=== PATIENT | male | born 1960 | race African-American/Black ===

== ENCOUNTER 2019-03-03 23:31 | Observation (INO) ==
[2019-03-04 00:40] LABS: ALBUMIN 4.8 g/dL (3.5-5.0); BASO# 0.06 X1000 (0.0-0.2); BASO% 1.1 % (0.0-0.8); CREATININE 1.3 mg/dL (0.7-1.2); EOS# 0.22 X1000 (0.0-0.7); HEMATOCRIT 44.2 % (42.0-52.0); HEMOGLOBIN 14.7 g/dL (14.0-18.0); LYMPH# 1.95 X1000 (1.2-3.4); LYMPH% 35.7 % (20.5-51.1); MCH 28.7 PG (27-31); MCHC 33.3 g/dL (33-37); MCV 86.2 FL (81-99); MONO# 0.41 X1000 (0.11-0.59); MONO% 7.5 % (1.7-9.3); MPV 10.3 FL (7.4-10.4); NEUT# 2.82 X1000 (1.4-6.5); NEUT% 51.7 % (42.2-75.2); PLT 203 X1000 (130-400); RBC 5.13 XMIL (4.7-6.1); RDW 12.9 % (11.5-14.5); TOTAL BILIRUBIN 0.4 mg/dL (0.20-1.00); TOTAL PROTEIN 7.2 g/dL (6.3-8.3); WBC 5.46 X1000 (4.8-10.8)
--- NOTE | 2019-03-04 00:41 | PROVIDER DOCUMENTATION ---
This chart was entered by Beth Huffman Scribe, acting as scribe for Kristina Mackey CRNP. HPI-Syncope/Dizziness - General Source: patient, EMS - History of Present Illness-Syncope/Dizzy Prior Episodes: reports: no prior history Onset/Duration: reports: just prior to arrival Timing: reports: still present Position/Activity at time of episode: reports: activity (walking at work) Symptoms prior to episode: reports: other (dizzy) Context: reports: lost consciousness Loss of Consciousness: brief (seconds) Location of injury. (If syncope resulted in an injury.): reports: head Current Symptoms: reports: none/feels normal. denies: sweaty, chest pain, short of breath, nausea, dizzy, headache Recently Seen Here or By Another Healthcare Provider: No <Kristina Mackey - Last Filed: 03/04/19 01:17> <Aramis Pritchett - Last Filed: 03/04/19 04:13> - General Chief Complaint: Syncope Stated Complaint: Syncope/Fall(hit head) Time Seen by Provider: 03/03/19 23:39 - History of Present Illness-Syncope/Dizzy Nature of Presenting Problem: 59 y/o male with history of hypertension and stage II kidney failure as well as previous stent placement is brought to the ED via EMS after syncopal episode while at work [employer]. The patient states while at work he felt dizzy and then was on the concrete. He states head injury but denies tenderness to palpation, mayh st pain, SOB, and all other symptoms. EMS states the patient was hypoglycemic en route and they gave 15 grams Dextrose. (Kristina Mackey) Review of Systems - Adult - REVIEW OF SYSTEMS - ADULT Constitutional: denies: chills, fever, weight loss Eyes: reports: no symptoms reported Ears, Nose, Mouth & Throat: reports: no symptoms reported Cardiovascular: reports: syncope. denies: chest pain, palpitations Respiratory: denies: hemoptysis, pleurisy, shortness of breath Gastrointestinal: denies: diarrhea, nausea, vomiting Genitourinary: reports: no symptoms reported Musculoskeletal: reports: no symptoms reported Integumentary: reports: no symptoms reported Neurological: reports: dizziness/vertigo, syncope. denies: headache/migraines, slurred speech Psychiatric: reports: no symptoms reported Endocrine: reports: no symptoms reported Hematologic/Lymphatic: reports: no symptoms reported Allergic/Immunologic: reports: no symptoms reported All Other Systems: Reviewed and Negative <Kristina MackeyParveen - Last Filed: 03/04/19 01:17> Past History - Adult - PAST MEDICAL HISTORY-ADULT Review of Records: reports: Old Records Reviewed, Nursing Assessment Review, Medications Reviewed - IMMUNIZATION STATUS Childhood Immunizations: See Nurse Assessment Flu Vaccine: See Nurse Assessment - SOCIAL HISTORY Occupation: [email or web address] <Kristina MackeyParveen - Last Filed: 03/04/19 01:17> Physical Exam-General - PHYSICAL EXAM-ADULT Initial Vital Signs Reviewed: Yes - CONSTITUTIONAL General Appearance: alert, no apparent distress - EYES Eyes: PERRL/EOMI - HEAD, EARS, NOSE, MOUTH & THROAT HENMT: normocephalic/atraumatic, moist mucous membranes - NECK Neck: non-tender, full range of motion, supple. negative: C-spine tenderness - RESPIRATORY Respiratory: lungs clear, normal breath sounds, no pleuratic chest pain. negative: rales, rhonchi, wheezing, crepitus - CARDIOVASCULAR Cardiovascular: regular rate, rhythm, no edema, no gallop - GASTROINTESTINAL (ABDOMEN) Abdominal Exam: normal bowel sounds, non tender, soft. negative: distended, guarding, rebound - SKIN Integumentary: normal color, warm/dry - NEUROLOGIC Neurologic: clinical support specialist II-XII nml as tested <Kristina MackeyParveen - Last Filed: 03/04/19 01:17> Progress - PLAN OF CARE/RESULTS Result Diagrams: 03/04/19 00:02 03/04/19 00:02 - EKG 1 Time of EKG reading by physician:: 23:38 EKG Read and Signed by:: Aramis Pritchett EKG Interpretation (*Must complete 3 of following elements*): Abnormal Rate: 71 Rhythm: NSR [place]: normal Comments: possible left atrial enlargement, LVH - CT/MRI 1 CT Study: Head Impression: See EMR Report (No acute intracranial process. Nonspecific frontal sinus disease.) 2 CT Study: Cervical Spine Impression: See EMR Report (No acute fracture or signifcant subluxation.) - CHANGE OF SHIFT REPORT (ED Provider) 1 Report Given and Care Transferred to:: DR. PRITCHETT Time of Transfer: 00:40 Items Pending: Labs, CT/MRI Results <Kristina Mackey - Last Filed: 03/04/19 01:17> - PLAN OF CARE/RESULTS Result Diagrams: 03/04/19 00:02 03/04/19 00:02 <Aramis Pritchett - Last Filed: 03/04/19 04:13> - PLAN OF CARE/RESULTS Progress/Plan/Lab Results: Vital Signs - 8 hr 03/03/19 23:38 03/04/19 01:10 03/04/19 03:35 Temperature 97.4 F L Pulse Rate 71 63 Pulse Rate [Sitting] 68 Pulse Rate [Standing] 74 Pulse Rate [Supine] 60 Respiratory Rate 18 20 Blood Pressure 151/102 142/89 Blood Pressure [Sitting] 163/117 Blood Pressure [Standing] 165/112 Blood Pressure [Supine] 154/105 O2 Sat by Pulse Oximetry 95 97 Laboratory Results - last 24 hr 03/03/19 03/04/19 03/04/19 00:02 00:02 00:02 WBC 5.46 RBC 5.13 Hgb 14.7 Hct 44.2 MCV 86.2 MCH 28.7 MCHC 33.3 RDW Std Deviation 12.9 Plt Count 203 MPV 10.3 Immature Gran % (Auto) 0.0 Neut % (Auto) 51.7 Lymph % (Auto) 35.7 Garvin % (Auto) 7.5 Eos % (Auto) 4.0 Baso % (Auto) 1.1 H Immature Gran # (Auto) 0.00 Neut # (Auto) 2.82 Lymph # (Auto) 1.95 Garvin # (Auto) 0.41 Eos # (Auto) 0.22 Baso # (Auto) 0.06 Sodium 146 H Potassium 4.0 Chloride 108 H Carbon Dioxide 25 Anion Gap 13 BUN 23 H Creatinine 1.3 H Estimated GFR/1.73 m2 57 BUN/Creatinine Ratio 18 Glucose 127 H Calculated Osmolality 296 Calcium 10.0 Total Bilirubin 0.40 AST 58 H ALT 41 Alkaline Phosphatase 48 Troponin T < 0.010 Total Protein 7.2 Albumin 4.8 Globulin 2.0 Albumin/Globulin Ratio 2.0 Orders Category Date Time Status Finger Stick Blood Sugar (ED) DIRECTED Care 03/03/19 23:23 Active Orthostatic Vital Signs NOW Care 03/04/19 00:38 Active CHEST-2 VIEWS [RAD] Stat Exams 03/03/19 23:[address] HEAD/C-SPINE W/O CONTRAST [CT] Stat Exams 03/03/19 23:29 Taken CBC WITH ELECTRONIC DIFF [HEME] Stat Lab 03/04/19 00:02 Completed COMPREHENSIVE METABOLIC PANEL [CHEM] Stat Lab 03/04/19 00:02 Completed TROPONIN T Stat Lab 03/03/19 00:02 Completed 0.9% Sodium Chloride Inj [Ns] 1,000 ml Med 03/04/19 00:45 Discontinued IV 999 mls/hr EKG [EKG] Stat Ther 03/03/19 23:29 Ordered Pt presents with syncope, pt signed out to me by NEWTON Mackey, Dr. Duvall was paged multiple times over 3 hours and he never returned the page, per ED protocol Dr. Fermin the other overnight hospitalist was contacted and told of the patients, will admit to Dr. Duvall and Dr. Fermin to notify him of the admissions (Aramis Pritchett) Departure <Kristina Mackey - Last Filed: 03/04/19 01:17> - Departure Date of Disposition Decision: 03/04/19 Time of Disposition Decision: 04:09 Certified Medical Emergency: Emergent - Critical Care Note This patient required my direct & personal management of CC.: No <Aramis Pritchett - Last Filed: 03/04/19 04:13> - Departure DIAGNOSIS: Syncope and collapse Disposition: ADMITTED INPATIENT 09 Condition: Stable Attestation - Physician/ GRETTA Attestation Patient care was provided by Advanced Practice Provider:: No The physician spent face to face time with patient:: Yes Advanced Practice Provider documentation review:: Supervising physician onsite and consulted in the evaluation and care of this patient. The physician did have a face to face encounter with the patient. <Aramis Pritchett - Last Filed: 03/04/19 04:13> This chart was documented by the indicated scribe, (Beth Huffman, Adrian) and accurately reflects the services I performed and decisions made by me, Kristina Mackey CRNP, as attested by the provider's signature.
[2019-03-04] MEDS ORDERED: NS 1,000 ML IV ONE ×2 (00:45→09:47)
[2019-03-04] MEDS ORDERED: TYLENOL PO PRN (04:13)
[2019-03-04] MEDS ORDERED: MORPHINE IV PRN (04:13)
[2019-03-04] MEDS ORDERED: TORADOL IV PRN (04:13)
[2019-03-04] MEDS ORDERED: ZOFRAN IV PRN (04:13)
[2019-03-04] MEDS ORDERED: APRESOLINE IV ONE (04:14)
--- NOTE | 2019-03-04 04:58 | EKG Report ---
Test Performed on : 03/03/2019 11:38:49 PM Test Reason : CP Blood Pressure : / mmHG Vent. Rate : 071 BPM Atrial Rate : 071 BPM P-R Int : 200 ms QRS Dur : 092 ms QT Int : 388 ms P-R-T Axes : 032 -14 -26 degrees QTc Int : 421 ms Normal sinus rhythm. Possible Left atrial enlargement Left ventricular hypertrophy Abnormal ECG No previous ECGs available Unconfirmed Result
--- NOTE | 2019-03-04 07:19 | Diag Imaging Result Doc PS360 ---
EXAM: CHEST-2 VIEWS HISTORY: CP TECHNIQUE: Two views COMPARISON: None. FINDINGS: The lungs are well expanded. No contusion. No pneumothorax. The heart is not enlarged. The vessels are not distended. There are no infiltrates. No pleural effusions. IMPRESSION: No acute abnormality. Electronically signed by Primo Griffin 03/04/2019 7:17 AM
--- NOTE | 2019-03-04 07:36 | Diag Imaging Result Doc PS360 ---
EXAM : CT HEAD/C-SPINE W/O CONTRAST HISTORY: FALL TECHNIQUE: 1. CT head without contrast 2. CT cervical spine without contrast COMPARISON: None. FINDINGS: Head: No parenchymal hemorrhage. No epidural or subdural hematoma. No subarachnoid hemorrhage. No mass identified on this noncontrasted exam. No hydrocephalus. No skull fracture. Prominent mucus in the left frontal sinus Cervical spine: There is good alignment to the cervical spine. Prominent degenerative changes at C3-4 with posterior lateral bone spurring on the left. No fracture IMPRESSION: Head: No hemorrhage. No injury. Cervical spine: No acute fracture. A preliminary report was given at 1:14 AM This exam was performed using automated exposure control, adjustment of mA or kV according to patient size, and/or use of iterative reconstruction technique. Electronically signed by Primo Griffin 03/04/2019 7:33 AM
[2019-03-04 11:23] LABS: CK INDEX 0.6 (0.0-2.5); CK-MB 6.84 ng/mL (0.0-5.0)
[2019-03-04 13:08] VITALS: BP 161/77
--- NOTE | 2019-03-04 14:52 | Vascular Study Report ---
EXAM: Carotid Ultrasound HISTORY: tia TECHNIQUE: Emergency carotid Doppler ultrasound COMPARISON: None. FINDINGS: Right: Normal flow in the common carotid artery. No occlusion or stenosis. Peak systolic velocity in the internal carotid artery 71 cm/s. No plaque. Antegrade vertebral flow. The ICA/CCA ratio 0.70. Left: There is normal flow in the common carotid artery. No occlusion or stenosis. No plaque in the bulb. The peak systolic velocity in the internal carotid artery is 82 cm/s. Antegrade vertebral flow. ICA/CCA ratio 0.66. IMPRESSION: No occlusion or stenosis within either common carotid artery or within either internal carotid artery. Electronically signed by Primo Griffin 03/04/2019 2:50 PM
--- NOTE | 2019-03-04 19:56 | HISTORY AND PHYSICAL ---
PRIMARY CARE PHYSICIAN: None. CHIEF COMPLAINT: Of syncope at work, was found to have a blood sugar of 56 per EMS. HISTORY OF PRESENTING ILLNESS: This is a 58-year-old male who presents to [facility] ER via EMS after he states he was at work last night, began feeling dizzy and passed out but states he did not hit his head. He states he ate breakfast yesterday morning but did not eat anything the rest of the day and this incident happened around 9:30 p.m. last night. When EMS arrived they check his blood sugar and it was 56. They gave him a 15 g of dextrose. When he arrived to the emergency room laboratory data showed his glucose was up to 127. He was noted to have a sodium of 146 so he was admitted for further evaluation and treatment. PAST MEDICAL HISTORY: Hypertension and chronic kidney disease stage 2. PAST SURGICAL HISTORY: Of an appendectomy, cataract removal, heart stent placement and a right knee replacement. FAMILY HISTORY: Reviewed and noncontributory. SOCIAL HISTORY: He currently lives with family. Denies any tobacco, alcohol or illicit drug use. ALLERGIES: No known drug allergies. HOME MEDICATIONS: He takes hydrochlorothiazide 25 mg p.o. daily and we will hold that at this time. LABORATORY DATA: Showed a white blood cell count of 5.46, hemoglobin 14.7, hematocrit 44.2, platelets 203,000. Sodium 146, potassium 4, chloride 108, CO2 25, BUN of 23, creatinine 1.3 but this would be around his baseline with a chronic kidney disease stage 2 but I do not have any further labs to compare it to. Glucose in the field EMS stated it was 56, gave him some dextrose 15 g. When he arrived to the emergency room it was up to 127. Chest x-ray showed no acute abnormality. Head and cervical spine CT showed no hemorrhage, no injury and no acute fractures. EKG normal sinus rhythm at 71. REVIEW OF SYSTEMS: He denied any fever, chills, blurred vision. He did have some dizziness, had a syncopal episode. Denied any chest pain, coughing, shortness of breath, abdominal pain, constipation, diarrhea, nausea, vomiting, burning or hurting with urination. PHYSICAL EXAMINATION: On arrival he had a temperature of 97.4 degrees, pulse 71, respirations 18, blood pressure 151/102, saturating 95% on room air, currently blood pressure is 159/94. GENERAL: This is a 58-year-old male who is lying in the bed and answers questions appropriately. HEENT: Normocephalic, atraumatic. Normal ENT inspection. Oropharynx and nares are clear. Pupils are equal, round, reactive to light, accommodation. Extraocular movements are intact. NECK: Normal inspection, normal range of motion. LUNGS: Clear to auscultation bilaterally with equal lung expansion and chest wall movement. HEART: Regular rate and rhythm. No murmurs, rubs, or gallops. ABDOMEN: Soft, nontender, nondistended. Bowel sounds are present x4 quadrants. MUSCULOSKELETAL: He has 5/5 strength x4 extremities. NEUROLOGICAL: The cranial nerves 2-12 appear grossly intact. ASSESSMENT: 1. Syncope. 2. Hypoglycemia. 3. Dehydration. 4. Hypertension. 5. Chronic kidney disease stage 2. PLAN: He was admitted to the medical unit placed on telemetry, O2 per protocol, healthy heart diet. We will check cardiac enzyme and troponin now. We will do an echocardiogram and a carotid ultrasound. Give him normal saline at 100 mL an hour and further orders after seen by attending. Dictated by NATHALIA Friedman for Lex Duvall MD cc: NATHALIA Friedman MD
--- NOTE | 2019-03-05 10:01 | ECHO REPORT ---
ORDER DATE: 03/04/2019 MEASUREMENTS: 1. Aortic root 2.4. 2. Left atrium 2.7. SUMMARY: 1. Technically difficult study due to limited acoustic window quality. 2. Aortic valve is trileaflet and demonstrates mild sclerotic change with adequate opening evident. Peak gradient across aortic valve is less than 10 mmHg. There is trace aortic regurgitation. Mitral and tricuspid valves are without evidence of structural abnormality while pulmonic valve is not well demonstrated. The aortic root is normal in size. 3. Normal left ventricular chamber size with mild concentric left hypertrophy is suggested. The estimated left ejection fraction appears to be at least 65%. No regional wall motion abnormalities are evident. Left atrium, right atrium, right ventricle are normal size with grossly preserved right ventricular systolic function. 4. No pericardial effusion. 5. Appearance of inferior vena cava suggests normal central venous pressure. cc: MD Lex Gleason MD
--- NOTE | 2019-03-05 13:33 | DISCHARGE SUMMARY ---
ADMISSION DATE: 03/03/2019 DISCHARGE DATE: 03/04/2019 Briefly, this is a 58-year-old male. He is not diabetic, but apparently was hypoglycemic, and he came in after an episode of falling out. He does have stage 2 kidney disease. He was given treatment with dextrose, and improved. By the time he got here, sugar was 127, creatinine 1.3. The rest of his workup was negative, but he was placed in observation for syncope and collapse. Workup was negative, carotid, serial enzymes. I felt he was stable to go home. Echocardiogram is still pending. We will get that situated. His discharge medication is hydrochlorothiazide 25, which we need to kind of monitor that. This is a service admission. cc: Lex Duvall MD
== END 2019-03-04 18:45 | disposition home or self-care (01) ==
LOC: EDBD → P.EDIPHOLD 23:31 → P.MEDSURG 23:31 → P.ED 23:31
PROVIDERS: ATTEND Internal Medicine